=== PATIENT | male | born 1940 | race Caucasian/White ===

== ENCOUNTER 2018-03-20 09:29 | Day surgery (SDC) | payer OTHER, MEDICARE ==
[2018-03-19 08:58] VITALS: BMI 22.8
[2018-03-20] MEDS ORDERED: BUPIVACAINE HCL/PF 0.5% (5MG/ML) 10 ML VIAL ONE (09:46)
[2018-03-20] MEDS ORDERED: oxyCODONE HCL 5 MG TABLET PO PRN ×3 (10:58→18:21)
[2018-03-20] MEDS ORDERED: ONDANSETRON 4 MG/2 ML VIAL IVPUSH PRN (10:58)
[2018-03-20] MEDS ORDERED: LACTATED RINGERS SOLUTION 1,000 ML IV SCH (11:00)
[2018-03-20] MEDS ORDERED: DEXAMETHASONE SOD PHOSPHATE/PF 10 MG/ML SDV ONE (11:00)
[2018-03-20] MEDS ORDERED: ROPIVACAINE HCL 0.5% 30ML VIAL ONE (11:00)
[2018-03-20] MEDS ORDERED: MIDAZOLAM HCL 2 MG/2 ML SINGLE DOSE VIAL ONE ×2 (11:01)
[2018-03-20] MEDS ORDERED: PROPOFOL 20 ML ONE (12:49)
[2018-03-20] MEDS ORDERED: ceFAZolin SODIUM 1 GM VIAL ONE (13:04)
[2018-03-20] MEDS ORDERED: KETOROLAC TROMETHAMINE 30 MG/1 ML VIAL ONE (13:45)
--- NOTE | 2018-03-20 15:12 | OP ---
Operative Note - Note: Operative Date: 03/20/18 Pre-Operative Diagnosis: left inguinal hernia Operation: left inguinal hernia repair with mesh Findings: as dictated Post-Operative Diagnosis: Same as Pre-op Surgeon: Richard Jansen Brim Setter: Carla Bhatia Anesthesiologist/LASER BEAM TRIM OPERATOR: Laura Sanchez Anesthesia: General, Local (L tap block) Specimens Removed: none Estimated Blood Loss (mls): 20 (ml) Fluid Volume Replaced (mls): 700 (ml) Operative Report Dictated: Yes
--- NOTE | 2018-03-20 15:23 | SURG ---
Surgery Barrel Drum Cutter Note Barrel Drum Cutter: Carla Bhatia PA-C (Suzy) Date of Service: 03/20/18 Diagnosis: left inguinal hernia Procedure: left inguinal hernia repair with mesh I was present for the entirety of the operative procedure. For further detail, please refer to operative report. Visit type - Case Type Case Type: Scheduled - New patient This patient is new to me today: Yes Date on this admission: 03/20/18 - Critical Care Critical Care patient: No
[2018-03-20 17:46] VITALS: BP 166/80; PULSE 87; TEMP 97.8
[2018-03-20] MEDS ORDERED: DOCUSATE SODIUM 100 MG CAPSULE (FP) PO PRN (18:21)
--- NOTE | 2018-03-31 00:32 | OP ---
DATE OF OPERATION: 03/20/2018 PREOPERATIVE DIAGNOSIS: Left inguinal hernia. POSTOPERATIVE DIAGNOSIS: Left inguinal hernia. PROCEDURE: Left inguinal hernia with mesh. SURGEON: Richard Jansen M.D. LAB SYSTEMS ANALYST: Marvin Lewis ANESTHESIA: General. OPERATIVE FINDINGS: There was an indirect left inguinal hernia of the sliding type, and the hernia contained small bowel which was part of the hernia sac. The floor was attenuated, and the rest of the findings are unremarkable. DESCRIPTION OF PROCEDURE: The patient was placed on the operating table in the supine position, and after the induction of general anesthesia the patient's lower abdomen was prepped with ChloraPrep and draped in sterile fashion. A transverse groin incision was made with scalpel and taken down through skin and subcutaneous tissue and Morenita fascia. The external oblique fascia was identified and opened proximally and distally in the direction of its fibers to the external ring. The cord structures elevated to the level of the pubic tubercle, and a Trufant drain placed around it for retraction and identification purposes. The previously noted findings were observed. The sac was identified within the substance of the cord and bluntly dissected up to the internal ring. The sac was opened, and the previously noted findings were observed, and then a portion of sac was excised, and the sac closed using a 2-0 Vicryl pursestring suture. The sac was then reduced into the indirect space, and a piece of Marlex Perfix mesh was fashioned to the floor of the inguinal canal. It was anchored at the pubic tubercle shelving edge and conjoined tendon respectively with interrupted 2-0 Prolene. A keyhole was created for the cord structures and the level of internal ring and anchored there with interrupted 2-0 Prolene as well. Hemostasis was secured with electrocautery and the wound copiously irrigated with sterile saline. Hemostasis was again verified, and the cord structures of the nerve were returned to their normal anatomic position. The external oblique fascia was closed using continuous 2-0 Vicryl recreating the external ring. Morenita fascia was reapproximated with interrupted 2-0 Vicryl, and the deep dermis was interrupted with 3-0 Vicryl, and the skin edges with 4-0 Monocryl in the subcuticular continuous fashion. Steri-Strips and dry sterile dressings were placed, and the procedure terminated at this point. The patient was aroused from general anesthesia and transferred to the postanesthesia care unit in stable condition, awake and alert. Estimated blood loss 20 mL. Replacement was crystalloid. Drains none. Specimens none. I, Richard Jansen, was physically present in the operative room from the time the patient was placed on the operating room table until he was transferred to the post anesthesia care unit in my accompaniment. MD PAPITO [id number]
== END 2018-03-20 17:50 | disposition home or self-care (01) ==
LOC: JASU-SURG 09:29
PROVIDERS: ATTEND Surgery
PROC: 0YU60JZ Supplement Left Inguinal Region with Synthetic Substitute, Open Approach (ICD-10-PCS; principal; 2018-03-20 12:00)
DX: K40.90 Unilateral inguinal hernia, without obstruction or gangrene, not specified as recurrent (principal)
CPT/HCPCS: 94760

== ENCOUNTER 2023-05-23 04:36 | Inpatient (IN) | payer OTHER, MEDICARE ==
[2023-05-23] MEDS ORDERED: ERTAPENEM SODIUM 1 GM VIAL ONE (06:25)
[2023-05-23] MEDS ORDERED: ERTAPENEM SODIUM 1 GM in SODIUM CHLORIDE 50 ML IVPB ONE (07:00)
[2023-05-23] MEDS ORDERED: LIDOCAINE HCL/PF 2% SDV 5ML VIAL ONE (07:36)
[2023-05-23] MEDS ORDERED: SODIUM CHLORIDE 0.9% P/F 10 ML VIAL IJ ONE (07:36)
[2023-05-23] MEDS ORDERED: GLYCOPYRROLATE 0.2 MG/1 ML VIAL ONE (07:36)
[2023-05-23] MEDS ORDERED: ONDANSETRON 4 MG/2 ML VIAL ONE (07:36)
[2023-05-23] MEDS ORDERED: DEXAMETHASONE SOD PHOSPHATE 4 MG/1 ML VIAL ONE (07:36)
[2023-05-23] MEDS ORDERED: KETOROLAC TROMETHAMINE 30 MG/1 ML VIAL ONE (07:36)
[2023-05-23] MEDS ORDERED: SUCCINYLCHOLINE CHLORIDE 200 MG/10 ML SYRINGE ONE (07:41)
[2023-05-23] MEDS ORDERED: INDOCYANINE GREEN 25 MG/10 ML VIAL IVPUSH ONE (07:43)
[2023-05-23] MEDS ORDERED: BUPIVACAINE HCL/PF 0.5% (5MG/ML) 10 ML VIAL ONE (07:43)
[2023-05-23] MEDS ORDERED: MIDAZOLAM HCL 2 MG/2 ML SINGLE DOSE VIAL ONE (07:43)
[2023-05-23] MEDS ORDERED: PROPOFOL 40 ML ONE ×2 (08:07→11:57)
[2023-05-23] MEDS ORDERED: SEVOFLURANE 250 ML BTL ONE (08:08)
[2023-05-23] MEDS ORDERED: ACETAMINOPHEN INJECTION 100 ML IVPB ONE (08:08)
[2023-05-23] MEDS ORDERED: FENTANYL CITRATE/PF 50 MCG/ML VIAL ONE (08:08)
[2023-05-23] MEDS ORDERED: HYDROmorphone HCl 2 MG/ML VIAL ONE (08:10)
[2023-05-23] MEDS ORDERED: ROCURONIUM BROMIDE 50 MG/5 ML SYRINGE ONE ×2 (08:18→09:58)
[2023-05-23] MEDS ORDERED: PROPOFOL 60 ML ONE (08:19)
[2023-05-23] MEDS ORDERED: ERTAPENEM SODIUM 1 GM VIAL IVPB ONE (08:25)
[2023-05-23] MEDS ORDERED: LIDOCAINE HCL 2% JELLY 6 ML TP ONE (08:55)
[2023-05-23] MEDS ORDERED: BUPIVACAINE HCL/PF 0.5% (5 MG/ML) 30 ML VIAL IJ ONE (09:00)
[2023-05-23] MEDS ORDERED: MAGNESIUM SULF 50% (8.12 MEQ/2 ML-1 GM VIAL) ONE (09:49)
[2023-05-23] MEDS ORDERED: KETAMINE HCL 200 MG/20 ML VIAL ONE (09:51)
[2023-05-23] MEDS ORDERED: NEOSTIGMINE METHYLSULFATE 0.5 MG/1 ML - 10 ML MDV ONE (13:18)
[2023-05-23] MEDS ORDERED: ACETAMINOPHEN 1000 MG/100 ML BAG IVPB PRN (15:03)
[2023-05-23] MEDS: LACTATED RINGERS SOLUTION 1,000 ML/1,000 ML INFUS.BAG IV SCH (15:50)
[2023-05-23 17:40] VITALS: BMI 24.0
[2023-05-23] MEDS: CEFAZOLIN SODIUM 2 GM in DEXTROSE 5%-WATER 100 ML IVPB SCH (17:55)
[2023-05-24] MEDS: CEFAZOLIN SODIUM 2 GM in DEXTROSE 5%-WATER 100 ML IVPB SCH (01:57)
[2023-05-24 07:07] LABS: BASO % 0.1 % (0-2.0); HEMOGLOBIN 8.4 GM/dL (11.7-16.9); LYMPH % 9.7 % (8-40); MCH 26.7 pg (25.7-33.7); MCHC 32.4 g/dl (32.0-35.9); MEAN CELL VOLUME 82.5 fl (80-96); MEAN PLT VOLUME 8.5 fl (7.5-11.1); MONO % 6.9 % (3.8-10.2); NEUT % 83.3 % (42.8-82.8); PLATELET COUNT 225 10^3/uL (134-434); RBC 3.15 M/mm3 (4.00-5.60); RDW 20.5 % (11.9-15.9); WHITE BLOOD COUNT 13.1 K/mm3 (4.0-10.0)
[2023-05-24 07:22] LABS: POTASSIUM 4.1 mmol/L (3.5-5.1)
[2023-05-24 07:27] LABS: ALBUMIN 2.6 g/dl (3.4-5.0); BLOOD UREA NITROGEN 15.8 mg/dL (7-18); MAGNESIUM 2.1 mg/dL (1.8-2.4)
[2023-05-24 07:29] LABS: CREATININE 0.9 mg/dL (0.55-1.3)
[2023-05-24 07:30] LABS: BILIRUBIN,TOTAL 0.8 mg/dL (0.2-1); PHOSPHOROUS 3.8 mg/dL (2.5-4.9); TOT PROT 5.3 g/dl (6.4-8.2)
[2023-05-24] MEDS: LACTATED RINGERS SOLUTION 1,000 ML/1,000 ML INFUS.BAG IV SCH ×2 (08:43→14:00)
[2023-05-24 09:01] LABS: ANISOCYTOSIS 2+; MACROCYTOSIS 0
[2023-05-24] MEDS: ENOXAPARIN NA (PORCINE) 40 MG/0.4 ML DISP.SYRIN SQ SCH (09:03)
[2023-05-24] MEDS: AMIODARONE HCL 200 MG TABLET PO SCH (09:03)
[2023-05-24] MEDS: ASPIRIN 81 MG CHEWABLE TABLETS PO SCH (09:03)
[2023-05-24] MEDS ORDERED: AMIODARONE HCL 200 MG PO SCH (10:00)
[2023-05-24] MEDS ORDERED: DIGOXIN 0.125 MG TABLET PO SCH (10:00)
[2023-05-24] MEDS: ACETAMINOPHEN 325 MG TABLET (FP) PO PRN (16:48)
[2023-05-24] MEDS: ATORVASTATIN CA 10 MG TABLET (FP) PO SCH (21:20)
[2023-05-25] MEDS: LACTATED RINGERS SOLUTION 1,000 ML/1,000 ML INFUS.BAG IV SCH ×2 (06:20→15:55)
[2023-05-25 06:44] LABS: BASO % 0.5 % (0-2.0); EOS % 0.8 % (0-4.5); HEMATOCRIT 30.8 % (35.4-49); HEMOGLOBIN 9.8 GM/dL (11.7-16.9); LYMPH % 25.3 % (8-40); MCH 26.7 pg (25.7-33.7); MCHC 31.9 g/dl (32.0-35.9); MEAN CELL VOLUME 83.6 fl (80-96); MEAN PLT VOLUME 8.8 fl (7.5-11.1); MONO % 6.6 % (3.8-10.2); NEUT % 66.8 % (42.8-82.8); PLATELET COUNT 251 10^3/uL (134-434); RBC 3.68 M/mm3 (4.00-5.60); RDW 20.7 % (11.9-15.9); WHITE BLOOD COUNT 9.9 K/mm3 (4.0-10.0)
[2023-05-25 07:00] LABS: POTASSIUM 3.8 mmol/L (3.5-5.1)
[2023-05-25 07:05] LABS: ALBUMIN 2.9 g/dl (3.4-5.0); BLOOD UREA NITROGEN 10.5 mg/dL (7-18); CALCIUM 8.4 mg/dL (8.5-10.1); MAGNESIUM 2.4 mg/dL (1.8-2.4)
[2023-05-25 07:08] LABS: CREATININE 0.9 mg/dL (0.55-1.3); PHOSPHOROUS 2.9 mg/dL (2.5-4.9)
[2023-05-25 07:09] LABS: TOT PROT 5.9 g/dl (6.4-8.2)
[2023-05-25 07:10] LABS: BILIRUBIN,TOTAL 0.7 mg/dL (0.2-1)
[2023-05-25] MEDS: AMIODARONE HCL 200 MG TABLET PO SCH (10:49)
[2023-05-25] MEDS: ASPIRIN 81 MG CHEWABLE TABLETS PO SCH (10:49)
[2023-05-25] MEDS: ENOXAPARIN NA (PORCINE) 40 MG/0.4 ML DISP.SYRIN SQ SCH (10:49)
[2023-05-25] MEDS: ACETAMINOPHEN 325 MG TABLET (FP) PO PRN (10:50)
[2023-05-25] MEDS: ATORVASTATIN CA 10 MG TABLET (FP) PO SCH (21:24)
[2023-05-26 01:38] VITALS: RESP 20
[2023-05-26] MEDS: LACTATED RINGERS SOLUTION 1,000 ML/1,000 ML INFUS.BAG IV SCH (06:40)
[2023-05-26 06:56] LABS: BASO % 0.4 % (0-2.0); EOS % 2.8 % (0-4.5); HEMATOCRIT 25.8 % (35.4-49); HEMOGLOBIN 8.5 GM/dL (11.7-16.9); LYMPH % 20.9 % (8-40); MCH 27.4 pg (25.7-33.7); MCHC 33.2 g/dl (32.0-35.9); MEAN CELL VOLUME 82.7 fl (80-96); MEAN PLT VOLUME 8.1 fl (7.5-11.1); MONO % 6.7 % (3.8-10.2); NEUT % 69.2 % (42.8-82.8); PLATELET COUNT 216 10^3/uL (134-434); RBC 3.11 M/mm3 (4.00-5.60); RDW 19.9 % (11.9-15.9); WHITE BLOOD COUNT 8.5 K/mm3 (4.0-10.0)
[2023-05-26 07:44] LABS: ALBUMIN 2.5 g/dl (3.4-5.0); BILIRUBIN,TOTAL 0.5 mg/dL (0.2-1); CREATININE 0.8 mg/dL (0.55-1.3); MAGNESIUM 2.1 mg/dL (1.8-2.4); PHOSPHOROUS 2.7 mg/dL (2.5-4.9); TOT PROT 5.2 g/dl (6.4-8.2)
[2023-05-26] MEDS: ENOXAPARIN NA (PORCINE) 40 MG/0.4 ML DISP.SYRIN SQ SCH (09:41)
[2023-05-26] MEDS: AMIODARONE HCL 200 MG TABLET PO SCH (09:44)
[2023-05-26] MEDS: ASPIRIN 81 MG CHEWABLE TABLETS PO SCH (09:44)
[2023-05-26 13:23] LABS: BASO % 0.5 % (0-2.0); EOS % 2.4 % (0-4.5); HEMATOCRIT 27.6 % (35.4-49); HEMOGLOBIN 9.1 GM/dL (11.7-16.9); LYMPH % 16.8 % (8-40); MCH 27.1 pg (25.7-33.7); MEAN CELL VOLUME 82.1 fl (80-96); MEAN PLT VOLUME 8.3 fl (7.5-11.1); MONO % 5.7 % (3.8-10.2); NEUT % 74.6 % (42.8-82.8); PLATELET COUNT 256 10^3/uL (134-434); RBC 3.36 M/mm3 (4.00-5.60); RDW 20.5 % (11.9-15.9); WHITE BLOOD COUNT 9.3 K/mm3 (4.0-10.0)
[2023-05-26 14:48] VITALS: BP 120/72; PULSE 70; TEMP 98.5
== END 2023-05-26 16:59 | disposition home or self-care (01) | DRG 330 ==
LOC: J2C 04:36 → J4W 16:06
PROVIDERS: ADMIT Internal Medicine; ATTEND Internal Medicine
PROC: 0FN44ZZ Release Gallbladder, Percutaneous Endoscopic Approach (ICD-10-PCS; 2023-05-23)
PROC: 0DTF4ZZ Resection of Right Large Intestine, Percutaneous Endoscopic Approach (ICD-10-PCS; principal; 2023-05-23 08:00)
DX: C18.3 Malignant neoplasm of hepatic flexure (principal); R71.0 Precipitous drop in hematocrit; I10 Essential (primary) hypertension; E78.5 Hyperlipidemia, unspecified; R33.9 Retention of urine, unspecified; K66.0 Peritoneal adhesions (postprocedural) (postinfection)
CPT/HCPCS: 36415; 80053; 82272; 83735; 84100; 85025; 86140; 86850; 86900; 86901; 88305-TC; 88309-TC; 94010; 94760; 97116-GP; 97161-GP

== ENCOUNTER 2023-08-05 04:14 | Day surgery (SDC) | payer OTHER, MEDICARE ==
[2023-07-25 14:30] VITALS: BMI 24.0
[~2023-08-05 04:14] MED LIST: ACETAMINOPHEN 500 MG TABLET (FP) PO PRN
[2023-08-05 09:21] VITALS: RESP 18
[2023-08-05] MEDS: LIDOCAINE 1% P/F 10 MG/ML VIAL INF ONE (10:27)
[2023-08-05] MEDS: BUPIVACAINE HCL/PF 0.75% 10 ML VIAL NR ONE ×2 (10:28→10:30)
[2023-08-05 11:19] VITALS: TEMP 97.8
[2023-08-05 11:22] VITALS: BP 144/71; PULSE 62
[2023-08-05] MEDS ORDERED: ACETAMINOPHEN 500 MG TABLET (FP) PO PRN (14:39)
== END 2023-08-05 11:00 | disposition home or self-care (01) ==
LOC: JASU-SURG 04:14
PROVIDERS: ATTEND Pain Medicine Pain Medicine
PROC: 3E0T3BZ Introduction of Anesthetic Agent into Peripheral Nerves and Plexi, Percutaneous Approach (ICD-10-PCS; principal; 2023-08-05 10:30)
DX: M47.816 Spondylosis without myelopathy or radiculopathy, lumbar region (principal)
CPT/HCPCS: 76000-TC-FY